=== PATIENT | male | born 1990 | race Hispanic/Latino ===

== ENCOUNTER 2019-07-30 11:37 | Emergency (ER) | payer SELFPAY | END 2019-07-30 12:40 | disposition home or self-care (01) | LOC: NAV ERS 11:37 | DX: J06.9 Acute upper respiratory infection, unspecified (principal); F17.210 Nicotine dependence, cigarettes, uncomplicated | CPT/HCPCS: 99281 ==

== ENCOUNTER 2019-08-27 04:30 | Emergency (ER) | payer OTHER ==
[2019-08-27] MEDS ORDERED: HYDROcodone/Acetaminophen 5/325 mg Tablet ONE (05:17)
[2019-08-27] MEDS ORDERED: Adacel (T-DAP) 0.5 ML SYRINGE ONE (05:17)
--- NOTE | 2019-08-27 07:41 | RAD ---
XR Shoulder Rt 3 View STANDARD History: Injury. Pain Comparison: None. Findings: Distal right clavicular fracture, comminuted, with superior displacement of the proximal fr agment approximately 2 cm. Chromic clavicular alignment is normal. By the pharynx extensive expected location of the coracoclavi cular ligament. Appears be a right C7 cervical rib. Impression: Mildly comminuted distal clavicular fracture with superior displacement proximal fragment 2 cm.: Acromioclavicular alignment is normal and there is a fragment at the expected location of the coracoclavicular ligament.
== END 2019-08-27 05:29 | disposition home or self-care (01) ==
LOC: NAV ERS 04:30
DX: S42.031A Displaced fracture of lateral end of right clavicle, initial encounter for closed fracture (principal); S42.101A Fracture of unspecified part of scapula, right shoulder, initial encounter for closed fracture; S80.211A Abrasion, right knee, initial encounter; F17.210 Nicotine dependence, cigarettes, uncomplicated; V11.4XXA Pedal cycle driver injured in collision with other pedal cycle in traffic accident, initial encounter; Y93.55 Activity, bike riding
CPT/HCPCS: 90471; 90715